=== PATIENT | male | born 1960 | race Two or more races ===

== ENCOUNTER 2020-02-11 12:43 | Inpatient (IN) | payer BC ==
[~2020-02-11] VITALS: Ht 193 cm; Wt 103.0 kg
[2020-02-11] MEDS ORDERED: MORPHINE SULFATE 4 MG/ML CPJ (NOT FOR IM USE) IV ONE (13:15)
[2020-02-11] MEDS ORDERED: ONDANSETRON HCL 4MG/2ML INJ IV ONE (13:15)
[2020-02-11] MEDS ORDERED: SODIUM CHLORIDE 0.9% 1,000 ML IV ONE (13:15)
[2020-02-11 13:40] LABS: EOSINOPHILS % 4.2 % (0.0-5.0); HEMATOCRIT. 36.4 % (42.0-52.0); HEMOGLOBIN. 12.1 g/dL (14.0-18.0); MEAN CORPUSCULAR HEMOGLOBIN 26.4 pg (28.0-32.0); MEAN CORPUSCULAR VOLUME 79.3 fL (80.0-94.0); MEAN PLATELET VOLUME 7.9 fl (7.4-10.4); MONOCYTES % 7.4 % (2.0-8.0); NEUTROPHILS % 61.4 % (40.0-76.0); PLATELET 157 x1000/uL (130-400); RED BLOOD CELL COUNT 4.59 mill/uL (4.7-6.1)
[2020-02-11 13:57] LABS: CHLORIDE 108 mEq/L (98-107)
[2020-02-11] MEDS ORDERED: MAGNESIUM/ALUMINUM HYDROXIDE/SIMETHICONE 30ML UDC PO PRN (19:00)
[2020-02-11] MEDS ORDERED: DOCUSATE SODIUM 100MG CAPSULE PO PRN (19:00)
[2020-02-11] MEDS ORDERED: ONDANSETRON HCL 4MG/2ML INJ IV PRN (19:00)
[2020-02-11] MEDS ORDERED: ENOXAPARIN 40MG/0.4ML SYR SUBCUT SCH (19:00)
[2020-02-11] MEDS ORDERED: ACETAMINOPHEN 325MG TABLET PO PRN ×2 (19:00)
[2020-02-11] MEDS ORDERED: IPRATROPIUM/ALBUTEROL 0.5-3(2.5)MG/3ML NEB NEB PRN (19:00)
[2020-02-11] MEDS ORDERED: GUAIFENESIN 200MG/10ML SUGAR FREE UDC PO PRN (19:00)
[2020-02-11] MEDS ORDERED: CLONIDINE 0.1MG TABLET PO PRN (19:00)
[2020-02-11] MEDS ORDERED: NITROGLYCERIN 0.4MG TABLET SL SL PRN (19:00)
[2020-02-11] MEDS ORDERED: MORPHINE SULFATE 2 MG/ML CPJ (NOT FOR IM USE) IV PRN (19:00)
[2020-02-11] MEDS ORDERED: TRAMADOL 50MG TABLET PO PRN (19:00)
[2020-02-11] MEDS: AMLODIPINE 10MG TABLET PO SCH (19:08)
[2020-02-11 19:51] LABS: ETHANOL BLOOD < 10 mg/dL
[2020-02-11 19:52] LABS: TOTAL IRON BINDING CAPACITY 178 ug/dL (250-450)
[2020-02-11 19:53] LABS: LDL CHOLESTEROL 90 mg/dL (5-100)
[2020-02-11 19:55] LABS: HDL CHOLESTEROL 44 mg/dL (40-59)
[2020-02-11 20:03] LABS: *AMPHETAMINES SCREEN URINE NEGATIVE (NEGATIVE); *BARBITURATES SCREEN URINE NEGATIVE (NEGATIVE)
[2020-02-11 20:04] LABS: *BENZODIAZEPINES SCREEN URINE NEGATIVE (NEGATIVE); *COCAINE SCREEN URINE NEGATIVE (NEGATIVE); METHADONE URINE SCREEN NEGATIVE (NEGATIVE); OPIATES URINE SCREEN NEGATIVE (NEGATIVE); PHENCYCLIDINE URINE SCREEN NEGATIVE (NEGATIVE)
[2020-02-11 20:05] LABS: CANNABINOID URINE SCREEN NEGATIVE (NEGATIVE)
[2020-02-11 20:13] LABS: FOLIC ACID (FOLATE) SERUM 5.7 ng/mL (>5.38)
[2020-02-11 20:25] VITALS: BP 135/88
[2020-02-11] MEDS: ASCORBIC ACID 500 MG TABLET PO SCH (20:46)
[2020-02-11] MEDS: FAMOTIDINE 20MG TABLET PO SCH (20:47)
[2020-02-11] MEDS ORDERED: ZOLPIDEM TARTRATE 5MG TABLET PO PRN (21:00)
[2020-02-11] MEDS ORDERED: ENOXAPARIN 30MG/0.3ML SYR SUBCUT SCH (21:00)
[2020-02-11 23:24] LABS: CLARITY URINE CLEAR (CLEAR); COLOR URINE YELLOW (YELLOW); KETONES URINE NEGATIVE (NEGATIVE); LEUKOCYTE ESTERASE URINE NEGATIVE (NEGATIVE); NITRITE URINE NEGATIVE (NEGATIVE); OCCULT BLOOD URINE NEGATIVE (NEGATIVE); PH URINE 5.5 (4.5-8.0); PROTEIN URINE NEGATIVE (NEGATIVE); SPECIFIC GRAVITY URINE 1.022 (1.005-1.030)
[2020-02-12] VITALS: BP 147/95
[2020-02-12 00:17] LABS: CREATINE KINASE 63 IU/L (39-308)
[2020-02-12 00:18] LABS: CREATINE KINASE MB FRACTION < 1.0 ng/mL (0.5-3.6)
[2020-02-12 04:00] VITALS: BP 138/52
[2020-02-12 06:56] LABS: CREATINE KINASE 59 IU/L (39-308)
[2020-02-12 06:57] LABS: CREATINE KINASE MB FRACTION < 1.0 ng/mL (0.5-3.6)
[2020-02-12 08:00] VITALS: BP 151/105
[2020-02-12] MEDS: AMLODIPINE 10MG TABLET PO SCH (08:51)
[2020-02-12] MEDS: FAMOTIDINE 20MG TABLET PO SCH ×2 (08:51→22:36)
[2020-02-12] MEDS: ASCORBIC ACID 500 MG TABLET PO SCH ×2 (08:52→21:37)
[2020-02-12] MEDS: ZINC SULFATE 220 MG ( 50 ) CAPSULE PO SCH (08:52)
[2020-02-12] MEDS ORDERED: ASPIRIN 325MG EC TABLET PO SCH (09:00)
[2020-02-12 10:15] LABS: INR 1.1; PARTIAL THROMBOPLASTIN TIME 30.5 sec (23.4-31.0); PROTHROMBIN TIME 11.3 sec (9.6-11.0)
[2020-02-12 12:00] VITALS: BP 127/86
[2020-02-12] MEDS ORDERED: SODIUM BICARBONATE 4% (2.4MEQ) 5ML VIAL IV ONE (12:17)
[2020-02-12] MEDS ORDERED: IOHEXOL-300 100 ML BOTTLE ONE (15:17)
[2020-02-12 20:00] VITALS: BP 139/87
[2020-02-12] MEDS: ATORVASTATIN CALCIUM 20MG TABLET PO SCH (21:37)
[2020-02-13] VITALS: BP 131/85
[2020-02-13 03:58] VITALS: BP 142/92
[2020-02-13 08:00] VITALS: BP 139/88
[2020-02-13 08:39] LABS: EOSINOPHILS % 6.2 % (0.0-5.0); HEMATOCRIT. 31.6 % (42.0-52.0); HEMOGLOBIN. 10.6 g/dL (14.0-18.0); LYMPHOCYTES % 32.1 % (20.0-50.0); MEAN CORPUSCULAR HEMOGLOBIN 26.4 pg (28.0-32.0); MEAN CORPUSCULAR VOLUME 78.9 fL (80.0-94.0); MEAN PLATELET VOLUME 7.9 fl (7.4-10.4); MONOCYTES % 10.4 % (2.0-8.0); NEUTROPHILS % 50.3 % (40.0-76.0); PLATELET 140 x1000/uL (130-400); RED BLOOD CELL COUNT 4.01 mill/uL (4.7-6.1); RED CELL DISTRIBUTION WIDTH 14.9 % (11.6-14.6)
[2020-02-13] MEDS: ZINC SULFATE 220 MG ( 50 ) CAPSULE PO SCH (08:52)
[2020-02-13] MEDS: ASCORBIC ACID 500 MG TABLET PO SCH ×2 (08:52→20:42)
[2020-02-13] MEDS: AMLODIPINE 10MG TABLET PO SCH (08:52)
[2020-02-13] MEDS: FAMOTIDINE 20MG TABLET PO SCH ×2 (08:52→20:42)
[2020-02-13 09:32] LABS: CHLORIDE 107 mEq/L (98-107)
[2020-02-13] MEDS: ENOXAPARIN 100MG/ML SYR SUBCUT SCH ×2 (09:36→20:43)
[2020-02-13 09:39] LABS: PHOSPHORUS 3.4 mg/dL (2.5-4.9)
[2020-02-13] MEDS: SPIRONOLACTONE 25MG TABLET PO SCH (10:02)
[2020-02-13 12:00] VITALS: BP 139/99
[2020-02-13 16:00] VITALS: BP 129/86
[2020-02-13] MEDS: PIPERACILLIN/TAZOBACTAM 3.375 G in DEXT 5% WATER 100 ML IV SCH (17:19)
[2020-02-13 20:00] VITALS: BP 142/91
[2020-02-13] MEDS: ATORVASTATIN CALCIUM 20MG TABLET PO SCH (20:43)
[2020-02-13] MEDS ORDERED: PIPERACILLIN/TAZOBACTAM 3.375 G/VIAL IV SCH (22:00)
[2020-02-14] VITALS: BP 148/95
[2020-02-14] MEDS: PIPERACILLIN/TAZOBACTAM 3.375 G in DEXT 5% WATER 100 ML IV SCH ×3 (00:35→16:36)
[2020-02-14 04:00] VITALS: BP 158/93
[2020-02-14 07:41] VITALS: BP 135/90
[2020-02-14] MEDS: ASCORBIC ACID 500 MG TABLET PO SCH ×2 (08:12→22:06)
[2020-02-14] MEDS: ZINC SULFATE 220 MG ( 50 ) CAPSULE PO SCH (08:12)
[2020-02-14] MEDS: SPIRONOLACTONE 25MG TABLET PO SCH (08:13)
[2020-02-14] MEDS: AMLODIPINE 10MG TABLET PO SCH (08:13)
[2020-02-14] MEDS: ENOXAPARIN 100MG/ML SYR SUBCUT SCH (08:15)
[2020-02-14] MEDS: FAMOTIDINE 20MG TABLET PO SCH ×2 (08:23→22:06)
[2020-02-14 11:46] VITALS: BP 121/79
[2020-02-14 16:00] VITALS: BP 140/86
[2020-02-14 20:00] VITALS: BP 156/89
[2020-02-14] MEDS: ATORVASTATIN CALCIUM 20MG TABLET PO SCH (22:05)
[2020-02-14] MEDS: APIXABAN 5 MG TABLET PO SCH (22:05)
[2020-02-15] VITALS: BP 136/90
[2020-02-15 04:00] VITALS: BP 131/87
[2020-02-15] MEDS: PIPERACILLIN/TAZOBACTAM 3.375 G in DEXT 5% WATER 100 ML IV SCH ×2 (04:37→08:30)
[2020-02-15 08:00] VITALS: BP 141/88
[2020-02-15] MEDS: APIXABAN 5 MG TABLET PO SCH (08:29)
[2020-02-15] MEDS: SPIRONOLACTONE 25MG TABLET PO SCH (08:29)
[2020-02-15] MEDS: ZINC SULFATE 220 MG ( 50 ) CAPSULE PO SCH (08:29)
[2020-02-15] MEDS: ASCORBIC ACID 500 MG TABLET PO SCH (08:29)
[2020-02-15] MEDS: AMLODIPINE 10MG TABLET PO SCH (08:29)
[2020-02-15] MEDS: FAMOTIDINE 20MG TABLET PO SCH (08:33)
[2020-02-15 12:00] VITALS: BP 125/84
[2020-02-15 12:58] VITALS: BP 125/84
[2020-02-21] MEDS ORDERED: APIXABAN 5 MG TABLET PO SCH (17:00)
== END 2020-02-15 14:55 | disposition home health service (06) | DRG 186 ==
LOC: ER 12:43 → 8WST 17:09 → EDBEDREQTM 17:16 → EDBEDREQ 17:16 → ENRESERV 19:38
PROVIDERS: ADMIT Internal Medicine; ATTEND Internal Medicine
PROC: 0W993ZZ Drainage of Right Pleural Cavity, Percutaneous Approach (ICD-10-PCS; principal; 2020-02-12)
DX: J90 Pleural effusion, not elsewhere classified (principal); J86.9 Pyothorax without fistula; I50.33 Acute on chronic diastolic (congestive) heart failure; J18.9 Pneumonia, unspecified organism; E44.0 Moderate protein-calorie malnutrition; I82.402 Acute embolism and thrombosis of unspecified deep veins of left lower extremity; I42.9 Cardiomyopathy, unspecified; I11.0 Hypertensive heart disease with heart failure; I16.0 Hypertensive urgency; E78.5 Hyperlipidemia, unspecified; D63.8 Anemia in other chronic diseases classified elsewhere; Z68.27 Body mass index [BMI] 27.0-27.9, adult; Z82.49 Family history of ischemic heart disease and other diseases of the circulatory system; Z83.3 Family history of diabetes mellitus; Z79.82 Long term (current) use of aspirin; Z79.899 Other long term (current) drug therapy
CPT/HCPCS: 32555; 36415; 71045; 71260; 74176; 80053; 80061; 80305; 80320; 81003; 82550; 82553; 82607; 82746; 83036; 83540; 83550; 83615; 83735; 83880; 83986; 84100; 84484; 85025; 85651; 86140; 88305; 93005; 93306; 93970; 97162; 99285; J1650; J2270; J2405; J2543; J3490; J7030; J7060; Q9967; G0480